=== PATIENT | male | born 1980 | race Caucasian/White ===

== ENCOUNTER 2017-01-09 12:17 | Emergency (ER) | payer BC ==
[~2017-01-09] VITALS: Ht 190.5 cm; Wt 108.9 kg
[2017-01-09 12:18] VITALS: BP_SYST 164
[2017-01-09 13:00] VITALS: BP_SYST 154
== END 2017-01-09 13:00 | disposition home or self-care (01) ==
LOC: SED 12:17
DX: I10 Essential (primary) hypertension (principal); R42 Dizziness and giddiness; F17.290 Nicotine dependence, other tobacco product, uncomplicated; Z88.0 Allergy status to penicillin
CPT/HCPCS: 99281